=== PATIENT | male | born 1965 | race Two or more races ===

== ENCOUNTER 2016-12-09 18:57 | Emergency (ER) | payer MEDICAID ==
[2016-12-09] MEDS ORDERED: AZITHROMYCIN 250 MG TABLET ONE (21:46)
== END 2016-12-09 21:55 | disposition home or self-care (01) ==
LOC: ED 18:57
DX: J45.909 Unspecified asthma, uncomplicated (principal); I10 Essential (primary) hypertension
CPT/HCPCS: 99283 ×2; A9270